=== PATIENT | male | born 1985 ===

== ENCOUNTER 2018-06-02 22:51 | Observation (INO) | payer SELFPAY ==
[~2018-06-02] VITALS: Ht 180.3 cm; Wt 89.3 kg
[2018-06-02 23:59] LABS: BASOPHILS ABSOLUTE AUTO 0.09 K/mm3 (0.00-0.23); BASOPHILS PERCENT AUTO 1 % (0-2); EOSINOPHILS ABSOLUTE AUTO 0.07 K/mm3 (0.00-0.68); EOSINOPHILS PERCENT AUTO 1 % (0-6); Hemoglobin 10.9 g/dL (13.5-17.5); IMMATURE GRAN ABSOLUTE AUTO 0.13 K/mm3 (0.00-0.10); IMMATURE GRAN PERCENT AUTO 1 % (0-1); LYMPHOCYTES ABSOLUTE AUTO 2.71 K/mm3 (0.84-5.20); LYMPHOCYTES PERCENT AUTO 20 % (21-46); MONOCYTES ABSOLUTE AUTO 0.84 K/mm3 (0.16-1.47); MONOCYTES PERCENT AUTO 6 % (4-13); Mean Corpuscular HGB 32.9 pg (26.0-34.0); Mean Corpuscular HGB Conc 34.1 g/dL (31.5-36.5); Mean Corpuscular Volume 97 fL (80-100); Mean Platelet Volume 9.5 fL (9.1-12.4); NEUTROPHILS ABSOLUTE AUTO 9.62 K/mm3 (1.96-9.15); NEUTROPHILS PERCENT AUTO 72 % (41-73); Platelet Count 311 K/mm3 (150-400); RDW Coefficient Variation 11.5 % (11.7-14.2); RDW Standard Deviation 40.7 fL (35.1-46.3); Red Blood Cell Count 3.31 M/mm3 (4.30-5.90); White Blood Cell Count 13.46 K/mm3 (4.00-11.30)
[2018-06-03 00:15] LABS: Alanine Aminotransfer (ALT/SGP 74 U/L (12-78); Albumin, Blood 3.5 g/dL (3.4-5.0); Albumin/Globulin Ratio 1.5 (0.8-1.8); Alk Phos 53 U/L (50-136); Anion Gap 8 mmol/L (6-16); Aspartate Aminotrans (AST/SGOT 31 U/L (12-37); Bilirubin, Total 0.5 mg/dL (0.1-1.0); Blood Urea Nitrogen 37 mg/dL (8-24); Bun/Creatinine Ratio 35.9 (12.0-20.0); CO2, Blood 28 mmol/L (21-32); Calcium, Blood 8.1 mg/dL (8.5-10.1); Chloride, Blood 108 mmol/L (98-108); Creatinine, Blood 1.03 mg/dL (0.60-1.20); Globulin, Blood 2.3 g/dL (2.2-4.0); Glomerular Filtration Rate >60 (60-); Glucose, Blood 168 mg/dL (70-99); Sodium, Blood 144 mmol/L (136-145); Total Protein, Blood 5.8 g/dL (6.4-8.2)
[2018-06-03 00:16] LABS: International Normalized Ratio 1.19; Prothrombin Time Results 12.4 Sec (9.7-11.5)
--- NOTE | 2018-06-03 05:12 | NUR ---
SHIFT SUMMARY: PATIENT ARRIVED TO UNIT VIA GURNEY FROM ER. PATIENT ALERT AND ORIENTED, STEAY ON FEET AND ASYMPTOMATIC. PATIENT X2 BM, LIQUID BLACK WITH SOME RED MIXED IN. PATIENT ADMISSION COMPLETED, VSS, CALL LIGHT WITHIN REACH, BED LOW AND LOCKED.
[2018-06-03 05:18] LABS: Hemoglobin 9.4 g/dL (13.5-17.5); Mean Corpuscular HGB 32.2 pg (26.0-34.0); Mean Corpuscular HGB Conc 33.6 g/dL (31.5-36.5); Mean Corpuscular Volume 96 fL (80-100); Mean Platelet Volume 9.5 fL (9.1-12.4); Platelet Count 277 K/mm3 (150-400); RDW Coefficient Variation 11.5 % (11.7-14.2); RDW Standard Deviation 40.5 fL (35.1-46.3); Red Blood Cell Count 2.92 M/mm3 (4.30-5.90)
[2018-06-03 05:44] LABS: Alanine Aminotransfer (ALT/SGP 60 U/L (12-78); Albumin, Blood 3.1 g/dL (3.4-5.0); Albumin/Globulin Ratio 1.4 (0.8-1.8); Alk Phos 47 U/L (50-136); Anion Gap 7 mmol/L (6-16); Aspartate Aminotrans (AST/SGOT 21 U/L (12-37); Bilirubin, Total 0.5 mg/dL (0.1-1.0); Blood Urea Nitrogen 39 mg/dL (8-24); Bun/Creatinine Ratio 40.6 (12.0-20.0); CO2, Blood 28 mmol/L (21-32); Calcium, Blood 7.9 mg/dL (8.5-10.1); Chloride, Blood 110 mmol/L (98-108); Creatinine, Blood 0.96 mg/dL (0.60-1.20); Globulin, Blood 2.2 g/dL (2.2-4.0); Glomerular Filtration Rate >60 (60-); Glucose, Blood 106 mg/dL (70-99); Potassium, Blood 4.1 mmol/L (3.5-5.5); Sodium, Blood 145 mmol/L (136-145); Total Protein, Blood 5.3 g/dL (6.4-8.2)
--- NOTE | 2018-06-03 09:59 | NUR ---
PT TRANSPORTED TO [facility]. AGREES WITH PLANNED PROCEDURE. LUNG SOUNDS CLEAR. MEDS, ALLERIGES AND HX REVIEWED.
--- NOTE | 2018-06-03 10:04 | NUR ---
DAY SURGERY PT TANSFERED VIA [facility] TO DAY SURGERY FOR UPPER ENDOSCOPY. PT TALKED WITH DR LARES PRIOR TO TRANSFER. CONTINUE POT.
--- NOTE | 2018-06-03 11:00 | NUR ---
06/03/18 1100 Mindy Leavitt 1005 PATIENT CONFIRMS NPO STATUS AND AGREES WITH SCHEDULED PROCEDURE. Patient confirms NPO status and agrees with scheduled surgery. History, Chart, Medications and Allergies reviewed before start of procedure. O2 VIA N/C INTACT THROUGHOUT SEDATION/PROCEDURE. 3-LEAD EKG REVIEWED WITH PHYSICIAN PRIOR TO START OF PROCEDURE. MONITOR INTACT WITH CONTINUOUS PULSE OXIMETRY AND INTERMITTENT BP. PATIENT DETERMINED TO BE ASA APPROPRIATE FOR PROPOFOL SEDATION PRIOR TO START OF PROCEDURE BY DR. ZAMAN. Bite Block Placed.
[2018-06-03 11:27] LABS: Hematocrit 26.3 % (37.0-53.0)
--- NOTE | 2018-06-03 15:25 | NUR ---
NOTE PT AWAKE AND ALERT. SR. PT EXPRESSED FEELING "GREAT". pROTONIX GTT INFUSING PER DOCTOR ORDER. PT AWARE OF NEEDING TO STAY TONIGHT. TOLERATED CLEAR, LIQUIDS WELL. SIPPING ON ICE TEA RIGHT NOW. PASSING DARK MELONIC LOOKING STOOL. PT VSS. NO DIZZINESS WITH ACTIVITY. VOIDING WELL. HIS ONLY COMPLAINT IS THAT HE'S BORED. CONTINUE POT.
[2018-06-03 17:15] LABS: Hematocrit 27.1 % (37.0-53.0); Hemoglobin 9.4 g/dL (13.5-17.5)
[2018-06-03 23:35] LABS: Hematocrit 26.4 % (37.0-53.0); Hemoglobin 8.9 g/dL (13.5-17.5)
[2018-06-04 05:32] LABS: Hematocrit 24.2 % (37.0-53.0); Hemoglobin 8.2 g/dL (13.5-17.5)
--- NOTE | 2018-06-04 05:43 | NUR ---
SHIFT SUMMARY- PT HAS REMAINED AOX4 THROUGHOUT SHIFT. VSS. PLEASANT AND COOPERATIVE WITH CARE. PT CONTINUES TO AMBULATE INDEPENDENTLY WITHOUT DIFFICULTY. DENIES DIZZINESS, LIGHTHEADEDNESS OR DYSPNEA ON EXERTION. VOIDING WELL, REPORTS ONE DARK BM THROUGHOUT THE NIGHT, REPORTS IT IS UNCHANGED FROM PREVIOUS BOWEL MOVEMENT. CONTINUES TO TOLERATE CLEAR LIQUID DIET, DENIES NAUSEA OR ABDOMINAL DISCOMFORT. NO OTHER CHANGES FROM INITIAL ASSESSMENT. WILL CONTINUE TO MONITOR AND REPORT TO ONCOMING SHIFT RN. BED IN LOW POSITION, CALL LIGHT IN REACH.
[2018-06-05 04:21] LABS: Hematocrit 24.3 % (37.0-53.0); Hemoglobin 8.1 g/dL (13.5-17.5)
--- NOTE | 2018-06-05 06:35 | NUR ---
SHIFT SUMMARY- PT HAS REMAINED AOX4 THROUGHOUT SHIFT. VSS. PLEASANT AND COOPERATIVE WITH CARE. PT CONTINUES TO AMBULATE INDEPENDENTLY IN ROOM AND THROUGHOUT UNIT. DENIES DIZZINESS, LIGHTHEADEDNESS OR DYSPNEA. PT DENIES NAUSEA/ VOMITING OR ABDOMINAL PAIN. PROTONIX DRIP CONTINUES TO INFUSE AT 10 MG/HR. NO OTHER CHANGES FROM INITIAL ASSESSMENT. WILL CONTINUE TO MONITOR AND REPORT TO ONCOMING RN. BED IN LOW POSITION, CALL LIGHT IN REACH.
--- NOTE | 2018-06-05 08:50 | NUR ---
INITIAL ASSESSMENT: Pt resting in bed. Denies abd pain, nausea or emesis. States that he is feeling good and that he would like to go home today. VSS. Protonix gtt running per orders. Pulses palp. LS clear. HR reg. Abd slightly distended. States that he had a BM yesterday and that there was no blood in it. Denies other needs. Call light in reach. Will monitor.
[2018-06-05 09:31] LABS: Percent Saturation 78.5 % (20.0-50.0)
[2018-06-05] MEDS ORDERED: PANT40 PO (11:46)
--- NOTE | 2018-06-05 12:05 | NUR ---
discharge: Pt was given printed and written discharge instructions. Verbalzied understanding. Denies questions. IV discontinued, cath intact. RX was called into [facility] per pt request. Stable at time of discharge. Pt ambulated out.
== END 2018-06-05 12:49 | disposition home or self-care (01) ==
LOC: ER 22:51 → PCU 22:52
PROVIDERS: Emergency Medicine; Internal Medicine; Student in an Organized Health Care Education/Training Program; ADMIT Internal Medicine
PROC: 0DJ08ZZ Inspection of Upper Intestinal Tract, Via Natural or Artificial Opening Endoscopic (ICD-10-PCS; principal; 2018-06-03 10:00)
DX: K22.11 Ulcer of esophagus with bleeding (principal); K92.0 Hematemesis; K92.1 Melena; K44.9 Diaphragmatic hernia without obstruction or gangrene; K21.9 Gastro-esophageal reflux disease without esophagitis; F10.20 Alcohol dependence, uncomplicated; D50.0 Iron deficiency anemia secondary to blood loss (chronic)
CPT/HCPCS: 36415; 80053; 82271; 82272; 82607; 82728; 82746; 83540; 83550; 85014; 85018; 85025; 85027; 85610; 85730; 86900; 86901; 96361; 96374; 96375; 96376; 99285-25; C9113; G0378; J2405; J7030; J7120